=== PATIENT | female | born 1940 | race Asian ===

== ENCOUNTER 2018-01-08 08:12 | Emergency (ER) | payer MEDICARE, OTHER ==
[~2018-01-08] VITALS: Ht 149.9 cm; Wt 55.0 kg
[~2018-01-08 08:12] MED LIST: ACET325T21 PO; AMLO2.5T2 PO; MULT-516 PO; TELM80TA PO; vitamin c PO
[2018-01-08] MEDS ORDERED: METO25TA35 PO (08:42)
[2018-01-08] MEDS ORDERED: HYDROcodone/APAP 5/325 TABLET ONE (08:52)
[2018-01-08] MEDS ORDERED: HYDROcodone/APAP 5/325 TABLET PO ONE (09:00)
[2018-01-08 09:29] LABS: BASOPHILS # (AUTO) 0.04 x10^3/uL (0-0.1); BASOPHILS % (AUTO) 1 % (0-1); EOSINOPHILS # (AUTO) 0.19 x10^3/uL (0-0.4); EOSINOPHILS % (AUTO) 3 % (1-7); LYMPHOCYTES # (AUTO) 1.62 x10^3/uL (1-3.4); LYMPHOCYTES % (AUTO) 24 % (22-44); MD NO; MEAN CORPUSCULAR HEMOGLOBIN 31.7 pg (27.0-34.8); MEAN CORPUSCULAR HGB CONC 34.1 g/dL (32.4-35.8); MEAN PLATELET VOLUME 7.2 fL (7.4-10.4); MONOCYTES % (AUTO) 7 % (2-9); NEUTROPHILS # (AUTO) 4.48 x10^3/uL (1.8-6.8); NEUTROPHILS % (AUTO) 66 % (42-75); PLATELET COUNT 309 x10^3/uL (130-400); RED BLOOD COUNT 4.44 x10^6/uL (3.82-5.3); RED CELL DISTRIBUTION WIDTH 12.8 % (9.6-15.2)
[2018-01-08 09:35] LABS: ALBUMIN 4.2 g/dL (3.4-5.0); ANION GAP 6 mmol/L (5-15); CALCIUM 9.8 mg/dL (8.5-10.1); CHLORIDE 102 mmol/L (98-107); CREATININE 0.91 mg/dL (0.55-1.02)
[2018-01-08 09:39] LABS: TROPONIN I < 0.015 ng/mL (0.000-0.045)
[2018-01-08] MEDS ORDERED: KETOROLAC 30 MG/1 ML ONE (10:35)
[2018-01-08 10:58] VITALS: BP 145/72
[2018-01-08] MEDS ORDERED: KETOROLAC 30 MG/1 ML IM ONE (11:00)
== END 2018-01-08 11:00 | disposition home or self-care (01) ==
LOC: ED 10:28
DX: M13.111 Monoarthritis, not elsewhere classified, right shoulder (principal); I10 Essential (primary) hypertension
CPT/HCPCS: 36415; 71045; 73030; 80048; 82040; 84484; 85025; 93005; 96372; 99285; J1885

== ENCOUNTER 2018-03-18 10:11 | Emergency (ER) | payer MEDICARE, OTHER ==
[~2018-03-18] VITALS: Ht 149.9 cm; Wt 57.3 kg
[~2018-03-18 10:11] MED LIST changes: +METO25TA35 PO
[2018-03-18 10:16] VITALS: BP 146/60
[2018-03-18] MEDS ORDERED: DIPH,PERTUSS(ACELL),TET VAC/PF 0.5 ML IM-VACC ONE ×2 (10:48→11:00)
[2018-03-18] MEDS ORDERED: BACITRACIN ZINC OINT 500U/GM, 0.9 GM ONE (11:20)
== END 2018-03-18 11:56 | disposition home or self-care (01) ==
LOC: ED 11:03
DX: S81.851A Open bite, right lower leg, initial encounter (principal); I10 Essential (primary) hypertension; W54.0XXA Bitten by dog, initial encounter; Y93.89 Activity, other specified; Y92.410 Unspecified street and highway as the place of occurrence of the external cause; Y99.8 Other external cause status
CPT/HCPCS: 90471; 90715; 99283

== ENCOUNTER 2018-03-21 09:14 | Emergency (ER) | payer MEDICARE, OTHER ==
[~2018-03-21] VITALS: Ht 149.9 cm; Wt 57.2 kg
[2018-03-21 09:34] VITALS: BP 150/84
--- NOTE | 2018-03-21 09:52 | NUR ---
pt comfortable in bed. provider in room to recheck dog bite. awaiting further orders at this time.
[2018-03-21] MEDS ORDERED: BACITRACIN ZINC OINT 500U/GM, 0.9 GM ONE (09:54)
== END 2018-03-21 10:06 | disposition home or self-care (01) ==
LOC: ED 10:01
DX: S80.871D Other superficial bite, right lower leg, subsequent encounter (principal); M19.90 Unspecified osteoarthritis, unspecified site; I10 Essential (primary) hypertension; W54.0XXD Bitten by dog, subsequent encounter
CPT/HCPCS: 99283

== ENCOUNTER → 2020-07-02 | Outpatient (CLI) | payer MEDICARE, OTHER ==
[~2020-07-02] MED LIST changes: +ACET-2274 PO; -ACET325T21 PO; +REGADENOSON 0.4 MG/5 ML SYRINGE ONE
== END | disposition home or self-care (01) ==
LOC: CFH 11:48
PROVIDERS: ATTEND Internal Medicine Cardiovascular Disease
DX: I08.3 Combined rheumatic disorders of mitral, aortic and tricuspid valves (principal); I10 Essential (primary) hypertension
CPT/HCPCS: 78452; 93017; 93306; A9502; J2785